=== PATIENT | male | born 1935 | race Caucasian/White ===

== ENCOUNTER 2016-12-06 08:47 | Inpatient (IN) | payer MEDICARE, BC ==
[~2016-12-06] VITALS: Ht 177.8 cm; Wt 77.1 kg
[2016-12-06] MEDS ORDERED: EFFEX37.5 PO (10:13)
[2016-12-06] MEDS ORDERED: EFFEX75 PO (10:13)
[2016-12-06] MEDS ORDERED: LOP25 PO (10:14)
[2016-12-06] MEDS ORDERED: BUSPAR10 PO (10:14)
[2016-12-06] MEDS ORDERED: PRILOSEC40 MG PO (10:15)
[2016-12-06] MEDS ORDERED: ZANAFLEX2 MG PO (10:15)
[2016-12-06] MEDS ORDERED: PRAVACHOL40 MG PO (10:16)
[2016-12-06] MEDS ORDERED: TRAZODONE150 MG PO (10:16)
[2016-12-06] MEDS ORDERED: DITROPAN XL10 MG PO (10:16)
[2016-12-06] MEDS ORDERED: FLOMAX4 PO (10:17)
[2016-12-06] MEDS ORDERED: STOOL SOFTEN240 MG PO (10:18)
[2016-12-06] MEDS ORDERED: ASAB PO (10:18)
[2016-12-06] MEDS ORDERED: ROXICODONE15 MG PO (10:19)
[2016-12-06] MEDS ORDERED: ULTRAM50 PO (10:38)
[2016-12-06 13:06] LABS: BUN (BLOOD UREA NITROGEN) 7 MG/DL (6-23); CALCIUM, SERUM 7.8 MG/DL (8.5-10.4); CHLORIDE, SERUM 109 MMOL/L (96-112); CHOL/HDL RATIO(NOT ORDER) 2.7 (0-5); CHOLESTEROL 126 MG/DL (< 200); CO2 (CARBON DIOXIDE) 21 MMOL/L (24-34); CREATININE 0.58 MG/DL (0.70-1.30); GFR AFRICAN AMERICAN 110 ML/MIN (>=60); GFR NON AFRICAN AMERICAN 95 ML/MIN (>=60); GLUCOSE, SERUM 125 MG/DL (60-99); HDL CHOLESTEROL 46 MG/DL (> 39); LDL CHOLESTEROL 68 MG/DL (< 130); NON-HDL CHOLESTEROL 80 MG/DL (< 160); SODIUM, SERUM 140 MMOL/L (135-148); TRIGLYCERIDE 61 MG/DL (< 150)
[2016-12-06 14:48] LABS: CK-MB 6.4 NG/ML; CKMB INDEX (NOT ORD) 2.6; CPK 247 U/L (0-200)
[2016-12-07 04:55] LABS: HEMOGLOBIN 10.6 g/dL (13.6-17.8)
[2016-12-07 04:58] LABS: HEMATOCRIT 30.9 % (40.0-51.0)
[2016-12-07 05:12] LABS: BUN (BLOOD UREA NITROGEN) 9 MG/DL (6-23); CHLORIDE, SERUM 107 MMOL/L (96-112); CO2 (CARBON DIOXIDE) 24 MMOL/L (24-34); CREATININE 0.72 MG/DL (0.70-1.30); GFR AFRICAN AMERICAN 101 ML/MIN (>=60); GFR NON AFRICAN AMERICAN 87 ML/MIN (>=60); GLUCOSE, SERUM 106 MG/DL (60-99); POTASSIUM, SERUM 3.4 MMOL/L (3.5-5.3); SODIUM, SERUM 140 MMOL/L (135-148)
[2016-12-07 05:13] LABS: CK-MB 3.9 NG/ML; CPK 156 U/L (0-200)
[2016-12-09 06:41] LABS: BUN (BLOOD UREA NITROGEN) 8 MG/DL (6-23); CALCIUM, SERUM 8.2 MG/DL (8.5-10.4); CHLORIDE, SERUM 107 MMOL/L (96-112); CO2 (CARBON DIOXIDE) 23 MMOL/L (24-34); CREATININE 0.64 MG/DL (0.70-1.30); GFR AFRICAN AMERICAN 106 ML/MIN (>=60); GFR NON AFRICAN AMERICAN 91 ML/MIN (>=60); GLUCOSE, SERUM 90 MG/DL (60-99); POTASSIUM, SERUM 3.6 MMOL/L (3.5-5.3); SODIUM, SERUM 142 MMOL/L (135-148)
[2016-12-09] MEDS ORDERED: PRIN5 PO (15:01)
[2016-12-09] MEDS ORDERED: TOPXL25 PO (15:01)
[2016-12-09] MEDS ORDERED: ELIQUIS 5 MG TAB5 MG PO (15:01)
[2016-12-09] MEDS ORDERED: LIPITOR40 PO (15:02)
[2016-12-09] MEDS ORDERED: PLAVIX PO (15:02)
[2016-12-09] MEDS ORDERED: NITROSTAT0.4 MG SL (15:03)
== END 2016-12-09 16:55 | disposition home or self-care (01) | DRG 247 ==
LOC: ENRESERVDT → ENRESERVTM → ENRESERV → CORLMH 08:47 → SSU1 09:58 → 5NO 09:59 → SSU1 09:59 → CORLMH 09:59 → 5NO 12-07 11:38
PROVIDERS: Internal Medicine Cardiovascular Disease
PROC: 4A023N7 Measurement of Cardiac Sampling and Pressure, Left Heart, Percutaneous Approach (ICD-10-PCS; principal; 2016-12-06)
PROC: 027034Z Dilation of Coronary Artery, One Artery with Drug-eluting Intraluminal Device, Percutaneous Approach (ICD-10-PCS; 2016-12-06)
PROC: B2111ZZ Fluoroscopy of Multiple Coronary Arteries using Low Osmolar Contrast (ICD-10-PCS; 2016-12-06)
PROC: B2151ZZ Fluoroscopy of Left Heart using Low Osmolar Contrast (ICD-10-PCS; 2016-12-06)
DX: I21.4 Non-ST elevation (NSTEMI) myocardial infarction (principal); I48.92 Unspecified atrial flutter; I25.810 Atherosclerosis of coronary artery bypass graft(s) without angina pectoris; E78.00 Pure hypercholesterolemia, unspecified
CPT/HCPCS: 80048; 80061; 82550; 82553; 84484; 85014; 85018; 93005; 93288; 93458; 99152; 99153; A9270-GY; C1725; C1769; C1874; C1887; C1894; C8929; C9600; J0282; J0583; J2250; J2405; J3010; Q9957; Q9967